=== PATIENT | female | born 1995 | race Two or more races ===

== ENCOUNTER 2022-05-23 15:06 | Emergency (ER) | payer OTHER, SELFPAY ==
--- NOTE | 2022-05-23 16:41 | ED_ITS ---
HPI - URI/Sore Throat General Chief Complaint: Upper Respiratory Symptoms <WANDA Lange - Last Filed: 05/23/22 16:47> Stated Complaint: Sore Throat, Cough, Dizziness <WANDA Lange - Last Filed: 05/23/22 16:47> Time Seen by Provider: 05/23/22 18:24 <WANDA Lange - Last Filed: 05/23/22 16:47> Source: patient <Kely Chavez CNP - Last Filed: 05/23/22 18:36> Mode of arrival: ambulatory <Kely Chavez CNP - Last Filed: 05/23/22 18:36> Limitations: no limitations <Kely Chavez CNP - Last Filed: 05/23/22 18:36> History of Present Illness HPI Narrative: Patient is a 27-year-old female who presents to the emergency department for evaluation of upper respiratory symptoms. Symptom onset 1 week ago. Has sore throat, nonproductive cough, nasal congestion and rhinorrhea. Denies fevers, chills, neck pain, neck stiffness, headache, chest pain, shortness of breath. Denies any known sick contacts. <Kely Chavez CNP - Last Filed: 05/23/22 18:36> Related Data Allergies/Adverse Reactions: Allergies Allergy/AdvReac Type Severity Reaction Status Date / Time No Known Allergies Allergy Verified 05/23/22 16:43 <WANDA Lange - Last Filed: 05/23/22 16:47> Review of Systems Review of Systems: Constitutional: No fever. No chills. No weakness. No fatigue. ENT/ Mouth: No Ear Pain, positive Nasal Congestion, positive sore throat, po sitive Rhinorrhea, No Swallowing Difficulty Skin: No rash or itching. Cardiovascular: No chest pain. No palpitations. Respiratory: No shortness of breath. Positive cough. No sputum production. Gastrointestinal: No nausea. No vomiting. No diarrhea. No abdominal pain. Genitourinary: No burning micturition. No urinary frequency. Neurologic: No headache. No dizziness. No syncope. No numbness or tingling in the extremities. Musculoskeletal: No muscle pain. No back pain. No joint pain or stiffness. <Kely Chavez [employer] - Last Filed: 05/23/22 18:36> Yes all other systems are reviewed and are negative <Kely HortonDELBERT webb - Last Filed: 05/23/22 18:36> [facility], [facility] Past Medical History Attestation statement: The following information was validated with the patient. <Kely Garcia DELBERT Chavez - Last Filed: 05/23/22 18:36> Source: old records reviewed <Kely Garcia DELBERT Chavez - Last Filed: 05/23/22 18:36> Social History Social History: Social History Advance Directives: No Advance Directives Information Provided: No <WANDA Lange - Last Filed: 05/23/22 16:47> Physical Exam Vital Signs: Vital Signs: Last Vital Signs Temp 98.4 F 05/23/22 16:42 Pulse 92 05/23/22 16:42 Resp 18 05/23/22 16:42 BP 126/86 05/23/22 16:42 Pulse Ox 99 05/23/22 16:42 O2 Del Method 05/23/22 16:42 BMI result Body Mass Index 38.0 <WANDA Lange - Last Filed: 05/23/22 16:47> Vital Signs: Last Vital Signs Temp 98.4 F 05/23/22 16:42 Pulse 92 05/23/22 16:42 Resp 18 05/23/22 16:42 BP 126/86 05/23/22 16:42 Pulse Ox 99 05/23/22 16:42 O2 Del Method 05/23/22 16:42 BMI result Body Mass Index 38.0 Vital signs have been reviewed as normal and appeared to be correct. Blood pressure normal.? Heart rate normal.? Respiration rate normal. Temperature normal.? Oxygen saturation normal. <Kely HortonDELBERT webb - Last Filed: 05/23/22 18:36> Appearance: Alert.?Oriented to person, place and time. No acute distress.?Normal affect. Eyes: Pupils equal, round and reactive to light.? ENT: TM normal bilaterally. Pharynx mildly erythematous without exudates or tonsillar hypertrophy. Uvula midline. No drooling. No trismus. ? Neck: Normal inspection.? Neck supple.??No cervical adenopathy CVS: Heart sounds normal. Normal heart rate and rhythm.? Pulses normal.?? Respiratory: No respiratory distress.? Lung sounds clear to auscultation bilaterally?? Abdomen: Soft and non-tender. Normoactive bowel sounds. Skin: Skin warm and dry.? Normal skin color.? ? Extremities: No lower extremity edema.? Neuro: Moves all extremities spontaneously. Sensation intact bilaterally. No motor deficits. Ambulates with normal steady gait. <Kely Chavez CNP - Last Filed: 05/23/22 18:36> Course Course Course Narrative: RME-- 27yo F c/o sore throat, dry cough, congestion and rhinorrhea x 1 week. Denies fever, chills, sob, cp Posterior oropharynx mildly erythematous, tonsils without exudate or swelling. No appreciable lymphadenopathy, talking in complete sentences, TMs WNL COVID-19/influenza/RSV and rapid strep ordered <WANDA Lange - Last Filed: 05/23/22 16:47> Medical Decision Making Medical Decision Making [facility] Narrative: Patient is a 27-year-old female with no reported past medical history presenting to emergency department for evaluation of upper respiratory symptoms. She is in no apparent distress. Speaking clear full sentences. Vital signs within normal limits. Nontoxic appearing. No signs of systemic toxicity. Reviewed testing from RN knee; COVID-19/influenza/RSV/rapid strep testing are all negative. Physical examination not consistent with pneumonia, peritonsillar abscess, retropharyngeal abscess. Suspect viral upper respiratory infection as cause for patient's symptoms. Discussed conservative treatment, worrisome signs and symptoms that would warrant re-evaluation in the emergency department, acetaminophen/ibuprofen, OTC cold medication, warm saltwater gargles, throat lozenges. Advised outpatient follow-up with primary care provider as needed. Patient verbalized understanding, all questions were answered. She is stable for discharge. <Kely Chavez CNP - Last Filed: 05/23/22 18:36> Differential Diagnosis Differential Diagnoses: The differential diagnosis associated with the presentation includes (As noted above) <Kely Chavez CNP - Last Filed: 05/23/22 18:36> Lab Data [facility] Lab Attestation statement: I reviewed the patient's lab results. <Kely Chavez CNP - Last Filed: 05/23/22 18:36> Labs: Lab Results 05/23/22 05/23/22 Range/Units 16:57 16:57 Influenza Type A (PCR) NEGATIVE (Negative) Influenza Type B (PCR) NEGATIVE (Negative) RSV RNA Qual (PCR) NEGATIVE (Negative) SARS-CoV-2 RNA (RT-PCR) NEGATIVE (Negative) S. pyogenes GrpA VON Negative (Negative) <WANDA Lange - Last Filed: 05/23/22 16:47> Lab Results 05/23/22 05/23/22 Range/Units 16:57 16:57 Influenza Type A (PCR) NEGATIVE (Negative) Influenza Type B (PCR) NEGATIVE (Negative) RSV RNA Qual (PCR) NEGATIVE (Negative) SARS-CoV-2 RNA (RT-PCR) NEGATIVE (Negative) S. pyogenes GrpA VON Negative (Negative) <Kely Chavez CNP - Last Filed: 05/23/22 18:36> Tests considered The following testing was considered but not selected: I considered testing for chlamydia/gonorrhea of the oropharynx, however patient declines possibility of STI in declines testing. <Kely Chavez CNP - Last Filed: 05/23/22 18:36> Prescription Management I considered prescription management with: Antibiotic (I considered antibiotic management for group a strep, however testing is negative, suspect viral etiology at this time, antibiotics not indicated.) <Kely Chavez CNP - Last Filed: 05/23/22 18:36> Discharge Plan Discharge Clinical Impression: Upper respiratory infection <WANDA Lange - Last Filed: 05/23/22 16:47> Patient Disposition: Home, Self-Care <WANDA Lange - Last Filed: 05/23/22 16:47> Instructions: Upper Respiratory Infection (ED) <WANDA Lange - Last Filed: 05/23/22 16:47> Additional Instructions: Your testing today for COVID-19, influenza, RSV, and strep are all negative. At this time there is no indication for treatment with antibiotics. Your symptoms are most consistent with a viral upper respiratory infection Be sure to rest, stay well hydrated drinking plenty of fluids, eat small frequent meals. Tylenol/ibuprofen can be used as needed for fever/pain. [id number] cold medications may be helpful as well for symptoms. Saline nasal spray, humidifier may be helpful for nasal congestion. You may return to the emergency department with any new or worsening symptoms or concerns. Follow-up with your primary care provider as needed. Should remain out of school/ work until symptoms have resolved and have been without a fever for 24 hours without the use of Tylenol or ibuprofen. <WANDA Lange - Last Filed: 05/23/22 16:47> Referrals: Dago Brooks MD [Primary Care Provider] - <WANDA Lange - Last Filed: 05/23/22 16:47>
[2022-05-23 16:42] VITALS: BP 126/86; PULSE 92; RESP 18; TEMP 36.9; O2SAT 99; BMI 38.0
[2022-05-23 17:15] LABS: IDNOW Serial# 6674DD1D; Strep A Nucleic Acid Negative (Negative)
[2022-05-23 17:54] LABS: Influenza A PCR NEGATIVE (Negative); Influenza B PCR NEGATIVE (Negative); Resp Syncy Virus RNA Qual PCR NEGATIVE (Negative); SARS COV2 PCR INHOUSE NEGATIVE (Negative)
[2022-05-23] MEDS: Lidocaine HCl Viscous 2 % 15 ML SOLUTION 5 ML MUCOUS MEM (18:37)
--- NOTE | 2022-05-23 18:44 | PC.NURSE ---
patient a&ox3, pt c/o sore throat however couldnt state a number- pt medicated with lido per order, pt to be discharged.
== END 2022-05-23 18:46 | disposition home or self-care (01) ==
PROVIDERS: Physician Assistant; Emergency Provider Student in an Organized Health Care Education/Training Program; PCP Internal Medicine
DX: J06.9 Acute upper respiratory infection, unspecified (principal); J02.9 Acute pharyngitis, unspecified; Z20.828 Contact with and (suspected) exposure to other viral communicable diseases
CPT/HCPCS: 0241U; 87651; 99282; 99283